=== PATIENT | male | born 1950 | race Caucasian/White ===

== ENCOUNTER → 2016-12-04 | Outpatient (CLI) | payer OTHER ==
[2016-12-04 12:22] LABS: Blood Urea Nitrogen 16 mg/dL (9-20); Lithium <0.2 mmol/L; Non-African American GFR(MDRD) >60 (>60 ml/min/1.73 sqM)
== END | disposition home or self-care (01) ==
LOC: LABWHC1 07:45
PROVIDERS: ATTEND Psychiatry & Neurology Psychiatry
DX: F31.75 Bipolar disorder, in partial remission, most recent episode depressed (principal)
CPT/HCPCS: 36415; 80178; 82565; 84439; 84443; 84520

== ENCOUNTER 2017-06-24 00:04 | Inpatient (IN) | payer MEDICARE, BC ==
[2017-06-24 00:29] LABS: Glucose,Whole Blood 157 mg/dL (75-99)
[2017-06-24] MEDS ORDERED: MECLIZINE 12.5 MG TAB PO STA (00:35)
[2017-06-24] MEDS ORDERED: SODIUM CHLORIDE 0.9% 500 ML IV STA (00:35)
--- NOTE | 2017-06-24 00:39 | ED ---
General Adult HPI - General Chief complaint: Dizziness Stated complaint: numbness, tingling, poss stroke Time Seen by Provider: 06/24/17 00:16 Source: patient, family, RN notes reviewed Mode of arrival: wheelchair Limitations: no limitations - History of Present Illness Initial comments: 67 male presents with 4 days of dizziness and lightheadedness. Patient does state the symptoms are more than elsewhere and sitting or standing. He does report a sensation of the room spinning, this can be while he is lying or sitting. This evening he developed nausea and vomited several times. This was also associated with his dizziness. He denies any chest pain or shortness of breath. Denies any focal weakness. Denies any vision changes. Denies any ear pain or hearing changes. Patient does have some nasal congestion, however this was present only today. And his symptoms have been present for 4 days. He also reports left finger numbness. He states that he has had intermittent numbness to his right hand as well. Denies any symptoms at the time my evaluation. There is no neck pain. No abdominal pain. No diarrhea. No fever. Patient has past medical history of bipolar depression, no known heart disease, no diabetes. - Related Data Home Medications Medication Instructions Recorded Confirmed Ascorbic Acid [Vitamin C] 500 mg PO DAILY 01/03/16 06/24/17 Multivitamins, Thera [Multivitamin 1 tab PO DAILY 01/03/16 06/24/17 (formulary)] Previous Rx's Medication Instructions Recorded [place] Carbonate 600 mg PO BID-W/MEALS #120 cap 01/07/16 Lurasidone [Latuda] 80 mg PO W/SUPPER #30 tab 01/07/16 [place]-3 Fatty Acids/Fish Oil [Fish 1,000 mg PO BID-W/MEALS #0 01/07/16 Oil 1,000 mg Softgel] Venlafaxine HCl ER [Effexor XR] 37.5 mg PO DAILY #30 cap.er.24h 01/07/16 Allergies Allergy/AdvReac Type Severity Reaction Status Date / Time No Known Allergies Allergy Verified 06/24/17 00:12 Review of Systems ROS Statement: Those systems with pertinent positive or pertinent negative responses have been documented in the HPI. ROS Other: All systems not noted in ROS Statement are negative. Past Medical History Past Medical History: No Reported History History of Any Multi-Drug Resistant Organisms: None Reported Past Surgical History: Hernia Repair Past Anesthesia/Blood Transfusion Reactions: No Reported Reaction Past Psychological History: Anxiety, Bipolar Smoking Status: Never smoker Past Alcohol Use History: Occasional Past Drug Use History: None Reported - Past Family History Father Family Medical History: COPD Mother Additional Family Medical History / Comment(s): schizophrenic, aunt committed suicide. General Exam Limitations: no limitations General appearance: alert, in no apparent distress Head exam: Present: atraumatic, normocephalic Eye exam: Present: normal appearance, PERRL, EOMI. Absent: scleral icterus, conjunctival injection, nystagmus ENT exam: Present: normal exam, mucous membranes moist Neck exam: Present: normal inspection. Absent: tenderness, meningismus Respiratory exam: Present: normal lung sounds bilaterally. Absent: respiratory distress, wheezes Cardiovascular Exam: Present: regular rate, normal rhythm GI/Abdominal exam: Present: soft. Absent: distended, tenderness Extremities exam: Present: normal inspection, full ROM, normal capillary refill. Absent: pedal edema Back exam: Present: normal inspection Neurological exam: Present: alert, oriented X3, CN II-XII intact, other (No ataxia, no focal findings). Absent: motor sensory deficit Psychiatric exam: Present: normal affect, normal mood Skin exam: Present: warm, dry, intact. Absent: cyanosis, diaphoretic Course Vital Signs 06/24/17 06/24/17 06/24/17 00:08 02:00 02:57 Temperature 96.9 F L 97.7 F Pulse Rate 73 73 Pulse Rate [ 66 Pulse Oximetery ] Respiratory 22 18 18 Rate Blood Pressure 137/81 155/78 Blood Pressure 125/79 [Right Arm Supine] Blood Pressure 153/84 [Sitting] Blood Pressure 141/82 [Standing] O2 Sat by Pulse 98 96 Oximetry - Reevaluation(s) Reevaluation #1: 06/24/17 03:04 Patient's neuro exam remains unchanged while in the emergency department 06/24/17 03:07 EKG Findings - EKG Comments: EKG Findings:: EKG shows sinus rhythm with first-degree AV block, ventricular rate of 64, P removal to 18, castration 70, QTC [address] segment elevation or depression Medical Decision Making - Medical Decision Making 67-year-old male presenting with a four-day history of lightheadedness and dizziness. Patient did have some nausea and vomiting. In addition to symptoms of vertigo he had some numbness in his bilateral upper extremities, distended ( as unilateral. Patient's only past medical history is bipolar depression. There is no history of vascular disease, no history of CAD or stroke. Laboratory studies including CBC, CMP, troponin, I urinalysis is unremarkable. Chest x-ray shows no acute findings. CT head is negative for any intracranial process. Patient is given meclizine in the emergency department. His do not significantly improve his symptoms. He is given aspirin. He will be placed in observation for evaluation of vertigo and TIA. Neurology is placed on consult. - Lab Data Result diagrams: 06/24/17 00:24 06/24/17 00:24 Lab Results 06/24/17 06/24/17 06/24/17 Range/Units 00:24 00:24 00:24 WBC 7.1 (3.8-10.6) k/uL RBC 4.81 (4.30-5.90) m/uL Hgb 14.9 (13.0-17.5) gm/dL Hct 41.8 (39.0-53.0) % MCV 86.9 (80.0-100.0) fL MCH 30.9 (25.0-35.0) pg MCHC 35.6 (31.0-37.0) g/dL RDW 13.2 (11.5-15.5) % Plt Count 249 (150-450) k/uL Neutrophils % 54 % Lymphocytes % 32 % Monocytes % 6 % Eosinophils % 3 % Basophils % 1 % Neutrophils # 3.9 (1.3-7.7) k/uL Lymphocytes # 2.3 (1.0-4.8) k/uL Monocytes # 0.5 (0-1.0) k/uL Eosinophils # 0.2 (0-0.7) k/uL Basophils # 0.1 (0-0.2) k/uL Sodium 138 (137-145) mmol/L Potassium 4.1 (3.5-5.1) mmol/L Chloride 106 (98-107) mmol/L Carbon Dioxide 20 L (22-30) mmol/L Anion Gap 12 mmol/L BUN 15 (9-20) mg/dL Creatinine 1.20 (0.66-1.25) mg/dL Est GFR (MDRD) Af Amer >60 (>60 ml/min/1.73 sqM) Est GFR (MDRD) Non-Af >60 (>60 ml/min/1.73 sqM) Glucose 161 H (74-99) mg/dL POC Glucose (mg/dL) (75-99) mg/dL POC Glu Performance Test Engineer ID Calcium 9.5 (8.4-10.2) mg/dL Total Bilirubin 0.5 (0.2-1.3) mg/dL AST 19 (17-59) U/L ALT 29 (21-72) U/L Alkaline Phosphatase 87 (38-126) U/L Troponin I <0.012 (0.000-0.034) ng/mL Total Protein 6.5 (6.3-8.2) g/dL Albumin 4.1 (3.5-5.0) g/dL Urine Color Urine Appearance (Clear) Urine pH (5.0-8.0) Ur Specific [place] (1.001-1.035) Urine Protein (Negative) Urine Glucose (UA) (Negative) Urine Ketones (Negative) Urine Blood (Negative) Urine Nitrite (Negative) Urine Bilirubin (Negative) Urine Urobilinogen (<2.0) mg/dL Ur Leukocyte Esterase (Negative) 06/24/17 06/24/17 Range/Units 00:26 01:45 WBC (3.8-10.6) k/uL RBC (4.30-5.90) m/uL Hgb (13.0-17.5) gm/dL Hct (39.0-53.0) % MCV (80.0-100.0) fL MCH (25.0-35.0) pg MCHC (31.0-37.0) g/dL RDW (11.5-15.5) % Plt Count (150-450) k/uL Neutrophils % % Lymphocytes % % Monocytes % % Eosinophils % % Basophils % % Neutrophils # (1.3-7.7) k/uL Lymphocytes # (1.0-4.8) k/uL Monocytes # (0-1.0) k/uL Eosinophils # (0-0.7) k/uL Basophils # (0-0.2) k/uL Sodium (137-145) mmol/L Potassium (3.5-5.1) mmol/L Chloride (98-107) mmol/L Carbon Dioxide (22-30) mmol/L Anion Gap mmol/L BUN (9-20) mg/dL Creatinine (0.66-1.25) mg/dL Est GFR (MDRD) Af Amer (>60 ml/min/1.73 sqM) Est GFR (MDRD) Non-Af (>60 ml/min/1.73 sqM) Glucose (74-99) mg/dL POC Glucose (mg/dL) 157 H (75-99) mg/dL POC Glu Performance Test Engineer ID Angelique Barrientos Calcium (8.4-10.2) mg/dL Total Bilirubin (0.2-1.3) mg/dL AST (17-59) U/L ALT (21-72) U/L Alkaline Phosphatase (38-126) U/L Troponin I (0.000-0.034) ng/mL Total Protein (6.3-8.2) g/dL Albumin (3.5-5.0) g/dL Urine Color Yellow Urine Appearance Clear (Clear) Urine pH 7.0 (5.0-8.0) Ur Specific [place] 1.014 (1.001-1.035) Urine Protein Negative (Negative) Urine Glucose (UA) Negative (Negative) Urine Ketones Negative (Negative) Urine Blood Negative (Negative) Urine Nitrite Negative (Negative) Urine Bilirubin Negative (Negative) Urine Urobilinogen <2.0 (<2.0) mg/dL Ur Leukocyte Esterase Negative (Negative) Disposition Clinical Impression: Vertigo, TIA (transient ischemic attack) Disposition: ADMITTED IP TO THIS [facility] Condition: Stable Referrals: Nonstaff,Physician [Primary Care Provider] - 1-2 days Decision to Admit Reason: Admit from EC Decision Date: 06/24/17 Decision Time: 02:08
[2017-06-24 00:46] LABS: Basophils # (A) 0.1 k/uL (0-0.2); Basophils % (A) 1 %; CH 30.5; CHCM 35.2; Eosinophils # (A) 0.2 k/uL (0-0.7); Eosinophils % (A) 3 %; HCT 41.8 % (39.0-53.0); HDW 2.55; HGB 14.9 gm/dL (13.0-17.5); Luc # (Auto) 0.24; Luc % (Auto) 3; Lymphocytes # (A) 2.3 k/uL (1.0-4.8); Lymphocytes % (A) 32 %; MCH 30.9 pg (25.0-35.0); MCHC 35.6 g/dL (31.0-37.0); MCV 86.9 fL (80.0-100.0); Mean Platelet Volume 7.6; Monocytes # (A) 0.5 k/uL (0-1.0); Monocytes % (A) 6 %; Neutrophils # (A) 3.9 k/uL (1.3-7.7); Neutrophils % (A) 54 %; RBC 4.81 m/uL (4.30-5.90); RDW 13.2 % (11.5-15.5); WBC 7.1 k/uL (3.8-10.6); WBC (Perox) 7.07
[2017-06-24 00:55] LABS: ALT 29 U/L (21-72); AST 19 U/L (17-59); Alkaline Phosphatase 87 U/L (38-126); Anion Gap 12 mmol/L; Blood Urea Nitrogen 15 mg/dL (9-20); Calcium 9.5 mg/dL (8.4-10.2); Carbon Dioxide 20 mmol/L (22-30); Chloride 106 mmol/L (98-107); Glucose 161 mg/dL (74-99); Non-African American GFR(MDRD) >60 (>60 ml/min/1.73 sqM); Potassium 4.1 mmol/L (3.5-5.1); Sodium 138 mmol/L (137-145); Total Bilirubin 0.5 mg/dL (0.2-1.3); Total Protein 6.5 g/dL (6.3-8.2)
--- NOTE | 2017-06-24 01:49 | XR ---
EXAM: XR Chest, 2 Views CLINICAL HISTORY: Syncopal. TECHNIQUE: Frontal and lateral views of the chest. COMPARISON: No relevant prior studies available. FINDINGS: Lungs: Unremarkable. No consolidation. Pleural space: Unremarkable. No pneumothorax. Heart: Unremarkable. No cardiomegaly. Mediastinum: Unremarkable. Bones/joints: Unremarkable. IMPRESSION: Normal chest x-rays.
[2017-06-24 01:59] LABS: Appearance,Urine Clear (Clear); Bilirubin,Urine Negative (Negative); Glucose,Urine (UA) Negative (Negative); Ketones,Urine Negative (Negative); Leukocyte Esterase,Urine Negative (Negative); Nitrite,Urine Negative (Negative); Protein,Urine Negative (Negative); Specific Gravity,Urine 1.014 (1.001-1.035); UA Billing (MACRO vs. MICRO) CHEM; Urobilinogen,Urine <2.0 mg/dL (<2.0)
--- NOTE | 2017-06-24 02:22 | CT ---
EXAM: CT Head Without Intravenous Contrast CLINICAL HISTORY: Pain TECHNIQUE: Axial computed tomography images of the head/brain without intravenous contrast. CTDI is 57.40 mGy and DLP is 1064.30 mGy-cm. This CT exam was performed using one or more of the following dose reduction techniques: automated exposure control, adjustment of the mA and/or kV according to patient size, and/or use of iterative reconstruction technique. COMPARISON: No relevant prior studies available. FINDINGS: Brain: No evidence of acute infarct, hemorrhage, mass or edema. Chronic small vessel skin disease. Ventricles: Unremarkable. No ventriculomegaly. Bones/joints: Unremarkable. No acute fracture. Soft tissues: Unremarkable. Sinuses: Minimal mucosal thickening in the paranasal sinuses. Mastoid air cells: Unremarkable as visualized. No mastoid effusion. IMPRESSION: No acute findings.
[2017-06-24] MEDS ORDERED: ASPIRIN 325 MG TAB PO STA (02:58)
[2017-06-24] MEDS: SODIUM CHLORIDE 0.9% 1,000 ML IV SCH ×3 (03:05→22:05)
[2017-06-24 03:54] VITALS: BMI 28.6
[2017-06-24] MEDS: LITHIUM CARBONATE 300 MG CAP PO SCH ×2 (06:40→17:57)
[2017-06-24] MEDS ORDERED: RX INFO: IV CONTRAST WAS GIVEN 1 EACH MISC MISCELLANE PRN (07:48)
[2017-06-24 08:02] VITALS: RESP 16
--- NOTE | 2017-06-24 09:21 | CT ---
EXAMINATION TYPE: CT angio neck DATE OF EXAM: 06/24/2017 HISTORY: Tingling in both hands COMPARISON: NONE CT DLP: 343.3 mGycm. Automated Exposure Control for Dose Reduction was Utilized. TECHNIQUE: CTA scan of the neck is performed with IV Contrast, patient injected with 65 mL of Omnipa que 350, axial images are obtained, coronal and sagittal reformatted images are reviewed. Three-D rec onstructed images are created on an independent workstation and reviewed. FINDINGS: Carotid/Vascular Structures: There is mild to minimal mixed plaque in aortic arch. There is normal th ree-vessel origin from aortic arch. Right common carotid artery shows normal origin from the right br achiocephalic artery. There is mild calcified plaque at right carotid bulb. There is no significant p laque or stenosis in visualized portion of right common or internal carotid arteries. There is paten t external carotid artery without significant plaque or stenosis. There is no significant plaque or stenosis along course of left common or internal carotid arteries i ncluding at level of left carotid bulb. There is dominant left vertebral artery. Vertebral arteries are patent to basilar junction. Other: There is 1.2 cm mucous retention cyst or polyp in small caliber left sphenoid sinus on axial i mage 84 inferiorly. There is moderate disc space narrowing C6-C7 level. There are multilevel uncovertebral facet degenera tive changes bilaterally more prominent in the right side in the cervical spine. IMPRESSION: No significant stenosis in common or internal carotid arteries bilaterally.
[2017-06-24] MEDS: VENLAFAXINE HCL ER 37.5 MG CAP PO SCH (13:08)
[2017-06-24] MEDS ORDERED: MECLIZINE 12.5 MG TAB PO SCH (16:30)
[2017-06-24] MEDS: ENOXAPARIN 40 MG/0.4 ML SYRINGE SQ SCH (17:56)
[2017-06-24] MEDS: MECLIZINE 12.5 MG TAB PO SCH ×2 (17:57→22:02)
[2017-06-24] MEDS: LURASIDONE 80 MG TAB PO SCH ×2 (17:57→18:03)
--- NOTE | 2017-06-24 21:31 | P.CNNES ---
History of Present Illness Consult date: 06/24/17 Requesting physician: Henri Vivas Reason for Consult: TIA, vertigo Chief complaint: Dizziness History of Present Illness: Patient is a 67-year-old male being consult of by neurology for dizziness and lightheadedness. Patient states that his symptoms are exacerbated with positional changes of sitting to standing and when bending forward at the waist. He does also report a sensation of the room spinning around him. This can be while he is lying or sitting. In the past he has developed nausea intermittently and vomited several times. Symptoms of nausea and vomiting occur with and without the dizziness intermittently. Denies chest pain, shortness of breath. Denies any other neurological focal weakness. Denies vision changes, ear pain or hearing changes. Patient does have sinusitis and headache. Denies any trauma to the head or neck, prior history of injury to the head back or neck. The patient states this presented after his symptoms had commenced. Congestion has been present for one to 2 days. Patient does have complaints of bilateral numbness and tingling into the hands bilaterally, digits 1 through 3. Patient does have a history of carpal tunnel pain bilaterally. Patient was alert and oriented 3, semi-followers in bed, resting in no acute distress. Patient was not on aspirin prior to arrival. 81 mg aspirin started in the ED. CT of the brain was already performed and was unremarkable/ noncontributory. CT angiogram of the neck noted degenerative disc changes and facet changes at C6-7. Small sinus retention cyst noted. Otherwise CT angiogram was unremarkable. Review of Systems systems not previously noted are negative. Past Medical History History of Any Multi-Drug Resistant Organisms: None Reported Past Surgical History: Hernia Repair Past Anesthesia/Blood Transfusion Reactions: No Reported Reaction Past Psychological History: Anxiety, Bipolar Smoking Status: Never smoker Past Alcohol Use History: Occasional Additional Past Alcohol Use History / Comment(s): He denies any medical marijuana, marijuana, street drug use. He denies any alcohol abuse. He currently lives at home with his of 25 years. Past Drug Use History: None Reported - Past Family History Father Family Medical History: COPD Mother Additional Family Medical History / Comment(s): schizophrenic, aunt committed suicide. Medications and Allergies Home Medications Medication Instructions Recorded Confirmed Type Ascorbic Acid [Vitamin C] 500 mg PO DAILY 01/03/16 06/24/17 History Multivitamins, Thera [Multivitamin 1 tab PO DAILY 01/03/16 06/24/17 History (formulary)] Cyanocobalamin (Vitamin B-12) 5,000 mcg PO DAILY 06/24/17 06/24/17 History [Vitamin B12] Garlic 1 tab PO DAILY 06/24/17 06/24/17 History [place] Carbonate ER [Lithobid] 450 mg PO DAILY 06/24/17 06/24/17 History [place]-3 Fatty Acids/Fish Oil [Fish 1,000 mg PO DAILY 06/24/17 06/24/17 History Oil 1,000 mg Softgel] Venlafaxine HCl ER [Effexor Xr] 75 mg PO DAILY 06/24/17 06/24/17 History diphenhydrAMINE HCL [Benadryl] 25 mg PO HS PRN 06/24/17 06/24/17 History Allergies Allergy/AdvReac Type Severity Reaction Status Date / Time No Known Allergies Allergy Verified 06/24/17 08:52 Physical Examination - Vital Signs Vital Signs: Vital Signs Temp Pulse Pulse Resp BP BP BP 06/24/17 20:00 98.6 F 65 16 133/82 06/24/17 16:00 97.2 F L 68 16 135/86 06/24/17 12:00 82 16 134/82 06/24/17 08:00 96.9 F L 61 16 06/24/17 04:00 62 18 06/24/17 03:30 97.0 F L 62 18 144/89 06/24/17 02:57 97.7 F 73 18 155/78 06/24/17 02:00 66 18 125/79 153/84 06/24/17 00:08 96.9 F L 73 22 137/81 BP Pulse Ox 06/24/17 20:00 96 06/24/17 16:00 96 06/24/17 12:00 98 06/24/17 08:00 147/85 99 06/24/17 04:00 06/24/17 03:30 06/24/17 02:57 96 06/24/17 02:00 141/82 06/24/17 00:08 98 Intake and Output 06/24/17 06/24/17 06/24/17 06:59 14:59 22:59 Intake Total 800 420 Output Total 2050 400 Balance 800 -1630 -400 Intake: Intake, IV Titration 800 Amount Sodium Chloride 0.9% 1, 800 000 ml @ 100 mls/hr IV . Q10H [facility] Rx#:[id number] Oral 420 Output: Urine 2049 Other: Voiding Method Toilet Urinal Weight 95.7 kg Constitutional: AOx3, cooperative HEENT: NC/AT, no facial asymmetry is seen. Throat: Supple, no masses Respiratory: No increased work of breathing Cardiac: Regular rate and Rhythm GI: non tender, non distended Musculoskeletal: Forms Builder strengths are equal bilaterally 5/5, Lower extremity strengths are equal bilaterally at 5/5. positive Phalen's and Tinel's bilaterally, negative ulnar nerve pain with palpation. Neurological: CN II-XII in tact, patient was AOx3, speech and language are normal, no unilateralizing weakness, no seizure activity note on physical exam. Sensation was normal except as otherwise noted. Integementary: no rash, no erythema Psychiatric: mood and affect appropriate Results As previously stated in HPI. MRI of the brain: Ordered by another providerpending EEG: Ordered Fasting lipid panel: Ordered Serum homocysteine level: Ordered - Laboratory Findings CBC and BMP: 06/24/17 00:24 06/24/17 00:24 Abnormal Lab Findings: Abnormal Labs 06/24/17 06/24/17 00:24 00:26 Carbon Dioxide 20 L Glucose 161 H POC Glucose (mg/dL) 157 H Assessment and Plan (1) TIA (transient ischemic attack) Status: Acute (2) Vertigo Status: Acute Plan: Consult time: 0715 hrs, June 24, 2017 1. TIA: CT brain was negative, CT angiogram of the neck is negative for any remarkable findings. On exam the patient had bilateral upper extremity numbness and tingling and no other focal neurological deficits. Although it is possible he could've had a TIA his symptoms are more consistent with vertigo and the cervical findings noted on CT angiogram of the neck which indicate C6-7 changes which would be consistent with digits one through 3 numbness and tingling of the hands. Ordered: Serum homocysteine level Fasting lipid panel EEG Continue 81 mg aspirin use as implemented on arrival. 2. Vertigo/dizziness: Patient does have complaints of approximately 1 month or more of symptoms as noted in HPI. Patient states he has had over 2 doesn't occurrences. Significant symptoms occur when transitioning from sitting to standing or standing to bending forward at the waist. CT angiogram of the neck was negative. Patient's ED EKG noted first-degree heart block. patient was already started on Antivert 12.5 mg, 3 times a day to 4 times a day when necessary. This can be continued at this time. Recommendation: Cardiology consult 3. Cervical DDD/cervical spondylosis: As noted #1 above, patient had noted CT changes at C6-7. Current changes do not require an ortho consult at this time. Patient can be further worked up outpatient with an NCS/EMG of the upper extremities post discharge and a cervical MRI at a later date. Status: Neurology will continue to follow and provide updates as needed or warranted. I discussed the patient's pertinent medical information with Dr. Berrios. He agrees with the plan of care as implemented.
[2017-06-25 03:20] LABS: Cholesterol 173 mg/dL (<200); HDL Cholesterol 34 mg/dL (40-60)
[2017-06-25] MEDS: LITHIUM CARBONATE 300 MG CAP PO SCH ×2 (06:25→17:33)
--- NOTE | 2017-06-25 08:26 | HP ---
HISTORY AND PHYSICAL DATE OF ADMISSION: 06/24/2017 PRESENTING COMPLAINT: Dizzy. HISTORY OF PRESENTING COMPLAINT: This is a very pleasant, 67-year-old patient of Dr. Guthrie. History of bipolar disorder. Other active patient 4 - 5 days ago started to dig a hole in the ground, where he had to push or pull down and pull it apart. After some time, he noticed tingling in his 3 lateral fingers that is the middle finger down to the pinky both the sides and he has these episodes of feeling off and on for 3 - 4 days. Also had episodes of dizziness when he would bend forward, two occasions he had episodes of feeling fuzzy in the head. Denied any change in vision or change in speech. No focal weakness otherwise, hence he decided to come in. No prior history of stroke. REVIEW OF SYSTEMS: CONSTITUTIONAL: None. HEENT: As above. RESPIRATORY: None. CARDIOVASCULAR: None. GASTROINTESTINAL: None. GENITOURINARY: None. MUSCULOSKELETAL: None. DERMATOLOGIC: None. HEMATOLOGIC: None. LYMPHATIC: None PSYCHIATRY: Bipolar control. NEUROLOGICAL: As above. PAST MEDICAL HISTORY: Bipolar disorder. PAST SURGICAL HISTORY: Hernia repair. SOCIAL HISTORY: . 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 Does not smoke, alcohol occasionally. FAMILY HISTORY: COPD and schizophrenia. HOME MEDICATIONS: 1. Benadryl 25 mg q.h.s. p.r.n.. 2. Vitamin B12 at 500 mcg p.o. daily. 3. Effexor XR 75 mg p.o. daily. 4. Fish oil 1000 mg p.o. daily. 5. Multivitamin on tablet p.o. daily. 6. Lithobid 450 mg p.o. daily. 7. Vitamin C 500 mg p.o. daily. ALLERGIES: None. PHYSICAL EXAMINATION: Vital signs at present temperature 96.9, pulse 73, CO2 22, blood pressure 177/81, pulse ox 98% on room air. General Appearance: Well built, sitting up, not in distress. EYES: Pupils normal ENT: Oral cavity normal. NECK: JVD not raised. Mass not palpable. RESPIRATORY: Effort normal, lungs fair air entry. CARDIOVASCULAR: First and second sounds are normal. No edema. Abdomen is soft, nontender. Liver and spleen not palpable. LYMPHATICS: No lymph node enlargement in neck or axillae. PSYCHIATRIC: Alert and orient x3. Mood and affect normal. NEUROLOGICAL: Pupils are clear and grossly intact. Power and sensation are grossly intact. Please note, there was no obvious nystagmus noted. ASSESSMENT: 1. This is a patient with bilateral intermittent tingling in both the hands in the lateral 3 fingers radial, more in the distribution of the median nerve. This could be something more peripheral given that he was pushing these poles in the ground and pulling his hand apart. At the same time, patient also admitted having some dizziness, especially when he bends down. This may well be benign paroxysmal positional vertigo. Also note that patient felt fuzzy in the head and also complains of some sinus congestion and this as well could be vestibulitis. 2. Chronic bipolar disorder, controlled. PLAN: Will start the patient on Antivert 12.5 three times a day. Home medications were resumed. Patient also put on aspirin. I will do an MRI of the brain just to make show. Also Neurology was consulted. The patient did have neck CT angiogram that did show moderate disc narrowing at C6-C7. Care was discussed with the patient, questions were answered. MMFAITHL / JESSIN: [id number] /
[2017-06-25] MEDS ORDERED: ASPIRIN 81 MG CHEW PO SCH (09:00)
[2017-06-25] MEDS ORDERED: ASPIRIN 325 MG TAB PO SCH (09:00)
[2017-06-25] MEDS: ENOXAPARIN 40 MG/0.4 ML SYRINGE SQ SCH (10:11)
[2017-06-25] MEDS: MECLIZINE 12.5 MG TAB PO SCH ×3 (10:12→17:32)
[2017-06-25] MEDS: VENLAFAXINE HCL ER 37.5 MG CAP PO SCH (10:12)
[2017-06-25] MEDS: SODIUM CHLORIDE 0.9% 1,000 ML IV SCH (10:13)
--- NOTE | 2017-06-25 13:44 | MR ---
EXAMINATION TYPE: MR brain wo/w con DATE OF EXAM: 06/25/2017 COMPARISON: CT brain 06/24/2017 HISTORY: episodes of head spinning TECHNIQUE: Multiplanar, multisequence images of the brain and brainstem is performed without and with IV contras t, utilizing 9.5 mL intravenous Gadavist . FINDINGS: Diffusion weighted images demonstrate no evidence of a recent infarct or other diffusion ab normality. There is no extra-axial fluid collection or significant white matter signal abnormality. The ventricular system and cisternal spaces are normal in size and appearance. The brain volume is age appropriate. Midline structures demonstrate normal morphology. The craniocervical junction appears within normal limits. Post contrast images demonstrate no abnormal enhancement. The dural venous sinuses appear pa tent. The visualized sinuses are remarkable for minimal mucosal disease in the ethmoid air cells, max illary sinus and the globes are intact. IMPRESSION: No abnormality evident to account for patient's symptoms. Mild sinus disease.
--- NOTE | 2017-06-25 14:33 | P.PN ---
Progress Note - Text DATE OF SERVICE: 06/25/2017 PRESENTING COMPLAINT: Dizziness HISTORY OF PRESENT ILLNESS: 67-year-old male presented with tingling in his 3 lateral fingers middle finger got to the pinky and both sides with episodes of dizziness when he would bend forward causing him to feel fuzzy in his head. Possible benign paroxysmal vertigo INTERVAL HISTORY: 06/25/2017: Patient lying in bed, continues to complain of numbness and tingling to his left index middle finger and thumb. Some numbness and tingling to bilateral feet and legs. Ambulatory in the room and esparza, tolerating his diet, moved his bowels this morning. REVIEW OF SYSTEMS: Done for constitutional ,cardiovascular, GI, pulmonary with relevant findings as above. CURRENT MEDICATIONS Aspirin, Lovenox, lithium, let to do, Antivert, Effexor, PHYSICAL EXAM VITAL SIGNS: Temperature 97.6, pulse 69, respiratory rate 16, blood pressure 117/70, oxygen saturation 96% on room air. GENERAL APPEARANCE: Lying in bed, not in distress. EYES: Pupils equal. Conjunctiva normal. NECK: JVD not raised. Mass not palpable. RESPIRATORY: Respiratory effort normal. Lungs clear to auscultation. CARDIOVASCULAR: First and second sounds normal. No edema. ABDOMEN: Soft. Liver and spleen not palpable. No tenderness. No mass palpable. PSYCHIATRY: Alert and oriented x3. Mood and affect normal. NEUROLOGICAL: Cranial nerves grossly intact. No facial asymmetry. Power and sensation grossly intact INVESTIGATIONS: MRI of the brain with and without contrast: No abnormality evident to The patient's symptoms. Mild sinus disease. ASSESSMENT: -Trans-Ischemic attack, ruled out -Benign paroxysmal positional vertigo -Bilateral intermittent tingling to both hands lateral 3 fingers radial, more the distribution of the median nerve. -Vestibulitis -Cervical degenerative disc disorder/cervical spondylosis -Chronic bipolar disorder, controlled PLAN: Continue Antivert 12.5 mg 3 times a day, MRI of the brain pending, EEG pending, TIA ruled out due to the CT angiogram which is indicates a C6 7 change this is consistent with digits 1 through 3 numbness and tingling of the hands., cervical DDD can be worked up as an outpatient, discharge planning next 24-48 hours. We will continue to follow closely. SOFTWARE TEST DEVELOPER statement: Patient was seen and examined by nurse practitioner Maggie Alexander and all elements of the case discussed with attending Dr. Navarro
[2017-06-25 16:06] VITALS: BP 118/75; PULSE 65; TEMP 97.7
--- NOTE | 2017-06-25 16:14 | P.PN ---
Subjective Principal diagnosis: Vertigo Is a 67-year-old male continuing to be evaluated by the neurology service for episodes of vertigo. He stated that over the last few days he had been having episodic room spinning mostly with changes in position and head turning. He was also having some nausea and some episodic vomiting. There was no syncope. There was no recent illness. There was no head injury. Initial CT of the brain was normal. CTA was done and showed only some degenerative changes at C6- C7. A subsequent MRI of the brain was ordered and it was normal. He was started on some Antivert and he says this significantly reduces his symptoms. Objective - Vital Signs Vital signs: Vital Signs Temp 97.7 F 06/25/17 16:00 Pulse 65 06/25/17 16:00 Resp 16 06/25/17 16:00 BP 118/75 06/25/17 16:00 Pulse Ox 95 06/25/17 16:00 Intake & Output 06/24/17 06/25/17 06/25/17 18:59 06:59 18:59 Intake Total 420 1600 600 Output Total 2450 1150 Balance -2030 450 600 Weight 93.7 kg Intake: IV 1600 Sodium Chloride 0.9% 1, 1600 000 ml @ 100 mls/hr IV . Q10H ROSITA Rx#:[id number] Oral 420 600 Output: Urine 2450 1150 Other: Voiding Method Toilet Urinal # Voids 2 - Constitutional General appearance: Present: average body habitus, no acute distress - EENT Eyes: Present: EOMI, PERRLA. Absent: abnormal pupil, ptosis ENT: Absent: hard of hearing - Neck Neck: Present: normal ROM. Absent: rigidity - Respiratory Respiratory: negative: prolonged expiration, prolonged inspiration - Cardiovascular Rhythm: regular - Gastrointestinal General gastrointestinal: Absent: distended - Neurologic Neurologic Comment(s): Is alert awake and oriented 3. Speech-language are normal. There is no lateralizing weakness. There is no facial asymmetry. There is no dysmetria. Romberg is negative. No seizures or tremors are seen. Strength is full in bilateral upper lower extremities. There is no sensory deficit. Cranial nerves II through XII are intact. There is no nystagmus. - Labs CBC & Chem 7: 06/24/17 00:24 06/24/17 00:24 Labs: Abnormal Lab Results - Last 24 Hours (Table) 06/24/17 Range/Units 00:24 LDL Cholesterol, Calc 109 H (0-99) mg/dL HDL Cholesterol 34 L (40-60) mg/dL Assessment and Plan (1) Bilateral finger numbness Status: Chronic (2) Other cervical disc displacement at C6-C7 level Status: Chronic (3) Vertigo Status: Suspected Plan: His symptoms are most consistent with benign positional vertigo. His symptoms have mostly resolved with meclizine. He is still having some mild residual symptoms, so we will see him in an outpatient setting to do electrophysiologic testing. Otherwise he is cleared from a neurological standpoint. I have performed a history and physical on the above patient. I have reviewed the above note, and agree.
[2017-06-25] MEDS: LURASIDONE 80 MG TAB PO SCH ×2 (17:33→18:00)
--- NOTE | 2017-06-25 19:10 | P.DS ---
Providers Date of admission: 06/24/17 03:03 Expected date of discharge: 06/25/17 Attending physician: Eugene Navarro Consults: 06/24/17 03:00 Consult Physician Urgent Consulting Provider: Jigna Berrios Consult Reason/Comments: TIA, vertigo Do you want consulting provider notified?: Yes, Notify in am Primary care physician: Physician Nonstaff Hospital Course: FINAL DIAGNOSES: -Trans-Ischemic attack, ruled out -Benign paroxysmal positional vertigo -Bilateral intermittent tingling to both hands lateral 3 fingers radial, more the distribution of the median nerve. -Vestibulitis -Cervical degenerative disc disorder/cervical spondylosis -Chronic bipolar disorder, controlled HOSPTIAL COURSE: 67-year-old male admitted with numbness and tingling to his 3 lateral fingers with episodes of dizziness when he would bend forward concerns for transischemic attack or vertigo. Neurology consulted, CT of the brain, CT of the neck, MRI of the brain ordered. All were negative for any acute process. Antivert added patient's symptom improved. Patient ambulatory in the hallway, tolerating his diet between 75 and 100% of his meals. Passing gas has not a bowel movement since day of admission. Patient's condition stabilized would like to go home. PHYSICAL EXAM: CARDIOVASCULAR: First and second sounds noted no edema RESPIRATORY: Effort normal, lungs clear to auscultation MUSKULOSKELETAL: Gait steady NEUROLOGIC: Mild dizziness when changing positions but dissipates quickly Patient was seen and examined by nurse practitioner Maggie Alexander in all elements of the case discussed with attending Dr. Navarro DISPOSITION: Home self-care Patient Condition at Discharge: Stable Plan - Discharge Summary New Discharge Prescriptions: New Aspirin 81 mg PO DAILY Meclizine [Antivert] 12.5 mg PO QID #20 tablet Continue Multivitamins, Thera [Multivitamin (formulary)] 1 tab PO DAILY Ascorbic Acid [Vitamin C] 500 mg PO DAILY diphenhydrAMINE HCL [Benadryl] 25 mg PO HS PRN PRN Reason: Allergy Symptoms Cyanocobalamin (Vitamin B-12) [Vitamin B12] 5,000 mcg PO DAILY Venlafaxine HCl ER [Effexor XR] 75 mg PO DAILY [place]-3 Fatty Acids/Fish Oil [Fish Oil 1,000 mg Softgel] 1,000 mg PO DAILY [place] Carbonate ER [Lithobid] 450 mg PO DAILY Garlic 1 tab PO DAILY Discharge Medication List Ascorbic Acid [Vitamin C] 500 mg PO DAILY 01/03/16 [History] Multivitamins, Thera [Multivitamin (formulary)] 1 tab PO DAILY 01/03/16 [History ] Cyanocobalamin (Vitamin B-12) [Vitamin B12] 5,000 mcg PO DAILY 06/24/17 [History ] Garlic 1 tab PO DAILY 06/24/17 [History] [place] Carbonate ER [Lithobid] 450 mg PO DAILY 06/24/17 [History] [place]-3 Fatty Acids/Fish Oil [Fish Oil 1,000 mg Softgel] 1,000 mg PO DAILY 06/24 [History] Venlafaxine HCl ER [Effexor XR] 75 mg PO DAILY 06/24/17 [History] diphenhydrAMINE HCL [Benadryl] 25 mg PO HS PRN 06/24/17 [History] Aspirin 81 mg PO DAILY 06/25/17 [Rx] Meclizine [Antivert] 12.5 mg PO QID #20 tablet 06/25/17 [Rx] Follow up Appointment(s)/Referral(s): Clinton Lemon NPC [REFERRING] - 2 Weeks (message left at office that appointment is needed. PLEASE CALL IN AM FOR APPOINTMENT TIME) Shawn Guthrie MD [STAFF PHYSICIAN] - 07/01/17 12:15 pm Patient Instructions/Handouts: Transient Ischemic Attack (DC), Vertigo (DC) Discharge Disposition: HOME SELF-CARE
--- NOTE | 2017-06-25 22:55 | EEG ---
ELECTROENCEPHALOGRAM REPORT DATE OF SERVICE: 06/25/2017. REASON FOR TESTING: Transient ischemic attack and dizziness. PROCEDURE: This EEG was performed using a 21 channel digital electroencephalograph following international 10-20 system. DESCRIPTION OF THE RECORDING: From the beginning of the tracing, with patient's eyes closed, the background rhythm was mostly consisting of 8-9 Hz alpha frequency in the posterior occipital leads. No obvious asymmetry is seen. Photic stimulation was performed with a minimal driving response seen. No pathological waves were elicited. Occasional movement artifacts and rare lead artifacts are seen. The patient remains awake throughout the tracing. Hyperventilation was not performed. No epileptiform discharges were seen. His EKG lead showed a regular rate and rhythm. INTERPRETATION: This awake EEG can be considered within normal limits. There is no asymmetry seen. No epileptiform discharges were noticed. The absence of epileptiform discharges does not rule out the diagnosis of epilepsy, therefore clinical correlation is recommended. MMFAITHL / JEAN CARLOS: [id number] /
== END 2017-06-25 18:47 | disposition home or self-care (01) | DRG 149 ==
LOC: EC 00:04 → 6SEL 03:03
PROVIDERS: ADMIT Hospitalist; ATTEND Hospitalist
DX: H81.10 Benign paroxysmal vertigo, unspecified ear (principal); F31.9 Bipolar disorder, unspecified; H83.09 Labyrinthitis, unspecified ear; R11.2 Nausea with vomiting, unspecified; F41.9 Anxiety disorder, unspecified; R29.700 NIHSS score 0; I44.0 Atrioventricular block, first degree; J32.9 Chronic sinusitis, unspecified; M50.322 Other cervical disc degeneration at C5-C6 level; M47.812 Spondylosis without myelopathy or radiculopathy, cervical region; Z82.5 Family history of asthma and other chronic lower respiratory diseases; Z79.899 Other long term (current) drug therapy; Z81.8 Family history of other mental and behavioral disorders
CPT/HCPCS: 36415; 70450; 70498; 70553; 71020; 80053; 80061; 81003; 83090; 84484; 85025; 93005; 95819; 96360; 96361; 99285

== ENCOUNTER → 2018-06-06 | Outpatient (CLI) | payer MEDICARE, BC ==
[2018-06-06 09:58] LABS: Blood Urea Nitrogen 15 mg/dL (9-20); Lithium <0.2 mmol/L
[2018-06-06 10:12] LABS: T4, Free (Free Thyroxine) 0.76 ng/dL (0.78-2.19)
== END | disposition home or self-care (01) ==
LOC: LABWHC1 06:55
PROVIDERS: ATTEND Psychiatry & Neurology Psychiatry
DX: F31.75 Bipolar disorder, in partial remission, most recent episode depressed (principal)
CPT/HCPCS: 36415; 80178; 82565; 84439; 84443; 84520

== ENCOUNTER → 2019-07-24 | Outpatient (CLI) | payer MEDICARE, BC ==
[2019-07-24 14:01] LABS: African American GFR (CKD) 79.5 (60.0-200.0); Lithium <0.1 mmol/L (0.5-1.2)
== END | disposition home or self-care (01) ==
LOC: LABWHC1 07:03
PROVIDERS: ATTEND Psychiatry & Neurology Psychiatry
DX: F31.75 Bipolar disorder, in partial remission, most recent episode depressed (principal)
CPT/HCPCS: 36415; 80178; 82565; 84439; 84443; 84520